=== PATIENT | male | born 1940 | race Caucasian/White ===

== ENCOUNTER 2024-07-18 16:39 | Emergency (ER) | payer BC, OTHER ==
[2024-07-18 17:00] VITALS: BP 151/87; PULSE 78; RESP 16; TEMP 97.8; BMI 23.6
== END 2024-07-18 18:52 | disposition home or self-care (01) ==
LOC: FER 16:39
DX: S66.911A Strain of unspecified muscle, fascia and tendon at wrist and hand level, right hand, initial encounter (principal); W01.198A Fall on same level from slipping, tripping and stumbling with subsequent striking against other object, initial encounter
CPT/HCPCS: 70450-TC; 72125-TC; 93005; 99284-25